=== PATIENT | male | born 1960 | race Caucasian/White ===

== ENCOUNTER 2019-11-23 14:52 | Inpatient (IN) | payer OTHER ==
[~2019-11-23] VITALS: Ht 188 cm; Wt 84.8 kg
[~2019-11-23 14:52] MED LIST: RANITIDINE300 M1 PO
[2019-11-23 14:57] VITALS: Ht 188 cm; Wt 84.8 kg
[2019-11-23 16:23] LABS: CALCIUM 8.6 mg/dL (8.5-10.1); CHLORIDE SERUM 106 mmol/L (98-107); GFR1 > 60 mL/min; GLUCOSE SERUM 114 mg/dL (74-106); POTASSIUM SERUM 3.6 mmol/L (3.5-5.1); SODIUM SERUM 144 mmol/L (136-145)
[2019-11-23 16:27] LABS: BASOPHIL % 0.3 % (0-2); PLATELET COUNT 208 x10^3mcL (130-400); RED CELL DISTRIBUTION WIDTH 13.4 % (11.5-14.5)
[2019-11-23 16:30] LABS: ALBUMIN 3.8 g/dL (3.4-5.0); ALKALINE PHOSPHATASE 82 U/L (46-116); ALT/SGPT 34 U/L (16-63); AST/SGOT 14 U/L (15-37); BILIRUBIN TOTAL 0.5 mg/dL (0.20-1.00); MAGNESIUM 2.3 mg/dL (1.8-2.4); TOTAL PROTEIN, SERUM 7.3 g/dL (6.4-8.2)
[2019-11-23 16:37] LABS: T3 TOTAL 1.1 ng/mL
[2019-11-23 16:42] LABS: FREE T4 1.19 ng/dL (0.76-1.46); FREE THYROXINE INDEX 2.2 ug/dL (1.4-4.5); T4(THYROXINE) 6.2 ug/dL (4.7-13.3)
[2019-11-23] MEDS ORDERED: PEPCID AC10 M2 PO (18:03)
[2019-11-23 18:38] LABS: LIPASE 207 IU/L (73-393); PHOSPHOROUS 2.4 mg/dL (2.5-4.9)
[2019-11-23 18:44] LABS: CHOLESTEROL 220 mg/dL (<200); CHOLESTEROL/HDL RATIO 7.1; HDL CHOLESTEROL 31 mg/dL (40-60); TRIGLYCERIDES 513 mg/dL (<150)
[2019-11-23 18:56] VITALS: BP 138/73
[2019-11-23 21:34] VITALS: BP 152/87
[2019-11-24 04:54] VITALS: BP 123/73
[2019-11-24 06:33] LABS: BASOPHIL % 0.1 % (0-2); PLATELET COUNT 200 x10^3mcL (130-400); RED CELL DISTRIBUTION WIDTH 13.3 % (11.5-14.5)
[2019-11-24 06:35] LABS: CALCIUM 8.4 mg/dL (8.5-10.1); CARBON DIOXIDE 26.9 mmol/L (21-32); CHLORIDE SERUM 106 mmol/L (98-107); CREATININE SERUM 0.9 mg/dL (0.7-1.3); GFR1 > 60 mL/min; GLUCOSE SERUM 100 mg/dL (74-106); MAGNESIUM 2.1 mg/dL (1.8-2.4); PHOSPHOROUS 3.7 mg/dL (2.5-4.9); POTASSIUM SERUM 3.8 mmol/L (3.5-5.1); SODIUM SERUM 144 mmol/L (136-145)
[2019-11-24 08:20] VITALS: BP 142/78
[2019-11-24 12:00] VITALS: BP 135/77
[2019-11-24] MEDS ORDERED: ASPIRIN FOR CHI81 M1 PO (15:52)
[2019-11-24] MEDS ORDERED: TOPROL XL50 MG PO (15:54)
[2019-11-24 15:57] VITALS: BP 140/79
[2019-11-24] MEDS ORDERED: PROPAFENONE HC300 MG PO (15:57)
[2019-11-24] MEDS ORDERED: ATORVASTATIN CA40 M1 PO (17:44)
== END 2019-11-24 16:38 | disposition home or self-care (01) | DRG 310 ==
LOC: ED 14:52 → DU 17:32
PROVIDERS: Emergency Medicine; ADMIT Student in an Organized Health Care Education/Training Program
DX: I48.0 Paroxysmal atrial fibrillation (principal); K21.9 Gastro-esophageal reflux disease without esophagitis; Z04.9 Encounter for examination and observation for unspecified reason; E78.5 Hyperlipidemia, unspecified; E83.39 Other disorders of phosphorus metabolism; Z90.49 Acquired absence of other specified parts of digestive tract; Z87.442 Personal history of urinary calculi
CPT/HCPCS: 83880; 84439; G0378; J3490; J7030; Q0092